=== PATIENT | male | born 1995 | race Hispanic/Latino ===

== ENCOUNTER 2018-08-08 09:09 | Day surgery (SDC) | payer OTHER ==
[2018-08-08] MEDS ORDERED: NACL BACTERIOSTATIC INFILTRATI ONE (10:25)
[2018-08-08] MEDS ORDERED: ANCEF/STERILE WATER 2 GM/20 ML IV NR (11:00)
[2018-08-08] MEDS ORDERED: LACTATED RINGERS 1,000 ML ONE (11:11)
--- NOTE | 2018-08-08 11:17 | Anesthesia Day of Surgery ---
Anesthesia Day of Surgery - Day of Surgery Patient Examined: Yes Patient H&P Reviewed: Yes Patient is NPO: Yes
--- NOTE | 2018-08-08 11:17 | Anesthesia Consultation ---
Anesthesia Consult and Med Hx Date of service: 08/08/18 - Airway Anesthetic Teeth Evaluation: Good ROM Head & Neck: Adequate Mental/Hyoid Distance: Adequate Mallampati Class: Class II - Pulmonary Exam CTA: Yes - Cardiac Exam Cardiac Exam: RRR - Pre-Operative Health Status ASA Pre-Surgery Classification: ASA1 Proposed Anesthetic Plan: General - Pre-Anesthesia Comment Pre-Anesthesia Comments: Patient tolerates >6 METs. No chest pain. NO SOB. No cold or flu. No N/V or h/o motion sickness - Pulmonary Hx Smoking: No Hx Sleep Apnea: No (RACHELE PRE SCREEN LOW RISK.) - Cardiovascular System Hx Hypertension: No - Other Systems Hx Alcohol Use: No Hx Substance Use: No Hx Cancer: No Hx Obesity: No
[2018-08-08] MEDS ORDERED: TYLENOL PO PRN (11:30)
[2018-08-08] MEDS ORDERED: LACTATED RINGERS 1,000 ML IV SCH (11:30)
[2018-08-08] MEDS ORDERED: DILAUDID IV PRN ×2 (11:30)
[2018-08-08] MEDS ORDERED: DEMEROL IV PRN (11:30)
[2018-08-08] MEDS ORDERED: ZOFRAN IV PRN (11:30)
[2018-08-08] MEDS ORDERED: NARCAN 0.4 MG/1 ML IV PRN (11:30)
[2018-08-08] MEDS ORDERED: VERSED IV NR (11:30)
[2018-08-08] MEDS ORDERED: TORADOL IV PRN (11:30)
[2018-08-08] MEDS ORDERED: DIPRIVAN 10 MG/ML IV ONE (11:31)
[2018-08-08] MEDS ORDERED: SUBLIMAZE ONE ×2 (11:32→12:47)
--- NOTE | 2018-08-08 11:56 | Post Operative Note ---
Date of procedure: 08/08/18 Pre-op diagnosis: balanitis Post-op diagnosis: same Findings: as above Procedure: circ Anesthesia: GETA Surgeon: ANTONIETA ESTEVEZ Estimated blood loss: minimal Pathology: list (foreskin) Specimen disposition: to lab Condition: stable Disposition: PACU
--- NOTE | 2018-08-08 11:58 | Discharge Summary ---
Short Stay Discharge Plan Activity: other (no sex or strainin g) Weight Bearing Status: Full Weight Bearing Diet: regular Wound: open to air (remove dressing at 10 pm ) Special Instructions: other (ice packs in rr and x 24 hrs when awake ) Durable Medical Equipment Needed Upon Discharge: other Follow up with: PRIMARY CARE,MD [Primary Care Provider] - 7 Days ANTONIETA ESTEVEZ MD [Staff Physician] - 7 Days
[2018-08-08] MEDS ORDERED: NACL 0.9% IR ONE (12:20)
[2018-08-08] MEDS ORDERED: TORADOL ONE (12:30)
[2018-08-08 14:35] VITALS: BP 130/77
--- NOTE | 2018-08-08 18:52 | Operative Report ---
PREOPERATIVE DIAGNOSES: Severe phimosis, inability to retract foreskin with balanitis. POSTOPERATIVE DIAGNOSES: Severe phimosis, inability to retract foreskin with balanitis. PROCEDURE: Circumcision, sleeve and slit technique. SURGEON: Corbin Loaiza M.D. ANESTHESIA: General. FINDINGS: This is a gentleman who could not retract the foreskin at all. He had a lot of pain, now presents for circumcision. DESCRIPTION OF PROCEDURE: The patient was brought to the operating room and placed on the operating table. Following induction of anesthesia, placed in supine position, prepped and draped in usual sterile fashion. The penile skin was marked out and circumferential incision was made. Dorsal slit was carried out and the inner foreskin incision was marked out and incised to. This was connected completely dorsally and large amount of excess skin was removed. Once we made a slit, we had to use Betadine because there was some balanitis and lots of smegma material. Sutures were placed at 12, 3, 6, and 9 o'clock position. The frenulum was quite tight, did not tear, but it was very thin. We did not need a staged. Sutures were placed at 12, 3, 6, and 9 o'clock position and each quadrant was bisected with 3-0 and 4-0 chromic. The patient tolerated the procedure well and brought to recovery room in stable condition. JOB# [id number] MIGUE/TED
--- NOTE | 2018-08-08 20:19 | Post Anesthesia Evaluation ---
- Post Anesthesia Evaluation Patient Participated: Yes Airway Patent: Yes Stable Respiratory Function: Yes Nausea/Vomiting: No Temp > 96.8F: Yes Pain Manageable: Yes Adequeate Hydration: Yes Anesthesia Complications: No Block Receding Appropriately: Not Applicable Patient on Ventilator: No
== END 2018-08-08 15:36 | disposition home or self-care (01) ==
LOC: OR 09:09
PROVIDERS: ATTEND Urology
DX: N47.1 Phimosis (principal)
CPT/HCPCS: 54161; 88304; J0690; J1885; J2250; J2704; J3010; J7120